=== PATIENT | female | born 1995 | race Caucasian/White ===

== ENCOUNTER 2016-09-16 22:02 | Emergency (ER) | payer OTHER ==
[~2016-09-16] VITALS: Ht 165.1 cm; Wt 54.5 kg
[2016-09-17 01:55] VITALS: BP 102/61
== END 2016-09-17 02:14 | disposition home or self-care (01) ==
LOC: ER 22:02
DX: K12.0 Recurrent oral aphthae (principal)
CPT/HCPCS: 99282